=== PATIENT | female | born 1980 | race Caucasian/White ===

== ENCOUNTER 2019-04-07 23:23 | Emergency (ER) | payer BC ==
--- NOTE | 2019-04-08 00:03 | EDM.PDOC ---
ED HPI GENERAL MEDICAL PROBLEM - General Chief Complaint: Gastrointestinal Problem Stated Complaint: AMBULANCE-STOMACH PROBLEMS Time Seen by Provider: 04/07/19 23:58 Source of Information: Reports: Patient History Limitations: Reports: No Limitations - History of Present Illness INITIAL COMMENTS - FREE TEXT/NARRATIVE: onset epiG pain with vomiting 8pm, had biscuit prior but wasn't one with gravy. still has GB but no appy and had GI bypass @ [place] few weeks ago. has regular BM. denies . 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 ED EXAM, GI/ABD - Physical Exam Exam: See Below Exam Limited By: No Limitations General Appearance: Alert, WD/WN, Mild Distress, Other (upset). No: Active Emesis Ears: Hearing Grossly Normal Throat/Mouth: Normal Voice, No Airway Compromise Head: Atraumatic Neck: Non-Tender, Full Range of Motion Respiratory/Chest: No Respiratory Distress Cardiovascular: Regular Rate, Rhythm GI/Abdominal Exam: Soft, Tender, Other (epiG region). No: Distended, Guarding, Rigid, Rebound Neurological: Alert, Oriented, Normal Cognition, Normal Gait, No Motor/Sensory Deficits Psychiatric: Flat Affect Skin Exam: Warm, Dry, Normal Color Lymphatic: No Adenopathy Course - Vital Signs Last Recorded V/S: Last Vital Signs Temp 36.0 C 04/07/19 23:50 Pulse 54 L 04/07/19 23:50 Resp 16 04/07/19 23:50 BP 119/75 04/07/19 23:50 Pulse Ox 100 04/07/19 23:50 - Orders/Labs/Meds Labs: Laboratory Tests 04/08/19 04/08/19 Range/Units 00:15 00:15 WBC 12.7 H (5.0-10.0) 10^3/uL RBC 4.75 (4.2-5.4) 10^6/uL Hgb 13.1 (12.0-16.0) g/dL Hct 38.7 (37.0-47.0) % MCV 81.5 (80-100) fL MCH 27.6 (27.0-34.0) pg MCHC 33.9 (33.0-35.0) g/dL Plt Count 290 (150-450) 10^3/uL Neut % (Auto) 81.7 H (42.2-75.2) % Lymph % (Auto) 12.6 L (20.5-50.1) % [place] % (Auto) 5.4 (2-8) % Eos % (Auto) 0.1 L (1.0-3.0) % Baso % (Auto) 0.2 (0.0-1.0) % Sodium 138 (135-145) mmol/L Potassium 3.5 L (3.6-5.0) mmol/L Chloride 108 (101-111) mmol/L Carbon Dioxide 17.0 L (21.0-31.0) mmol/L Anion Gap 16.5 BUN 13 (7-18) mg/dL Creatinine 0.5 L (0.6-1.3) mg/dL Est Cr Clr Drug Dosing 153.89 mL/min Estimated GFR (MDRD) > 60 BUN/Creatinine Ratio 26.00 Glucose 112 H (74-105) mg/dL Calcium 8.9 (8.4-10.2) mg/dl Total Bilirubin 1.7 H (0.2-1.0) mg/dL AST 21 (10-42) IU/L ALT 39 (10-60) IU/L Alkaline Phosphatase 54 (42-121) IU/L Total Protein 6.5 L (6.7-8.2) g/dl Albumin 3.8 (3.2-5.5) g/dl Globulin 2.7 Albumin/Globulin Ratio 1.41 Amylase 37 (28-100) U/L Lipase 29 (22-51) U/L Meds: Medications Discontinued Medications Generic Name Dose Route Start Last Admin Trade Name Marifer PRN Reason Stop Dose Admin Iopamidol 100 ml 04/08/19 00:23 04/08/19 00:44 Isovue-300 (61%) IVPUSH 04/08/19 00:24 100 ml ONETIME ONE Administration Ketorolac Tromethamine 30 mg 04/08/19 01:52 04/08/19 02:02 Toradol IVPUSH 04/08/19 01:53 30 mg ONETIME ONE Administration Metoclopramide HCl 10 mg 04/08/19 00:20 04/08/19 00:29 Reglan IVPUSH 04/08/19 00:21 10 mg ONETIME ONE Administration Promethazine HCl 25 mg 04/08/19 02:29 Phenergan IM 04/08/19 02:30 ONETIME ONE - Re-Assessments/Exams Free Text/Narrative Re-Assessment/Exam: 04/08/19 02:34 re-exam; s/p IV toradol = pain much better but still feels nauseous. Departure - Departure Time of Disposition: 02:35 Disposition: Home, Self-Care 01 Condition: Good Clinical Impression: Cholelithiasis without obstruction - Discharge Information Instructions: Cholelithiasis, [id number] Forms: ED Department Discharge Additional Instructions: 1) avoid fatty oily fried spicy foods 2) have bland diet, oatmeal, broth, jello 3) see family doctor when arrive home. 4) recheck if there is any change or concern
[2019-04-08] MEDS: Metoclopramide 10 MG/2 ML SDV IVPUSH ONE (00:29)
[2019-04-08 00:41] LABS: ANION GAP 16.5; CHLORIDE,CL 108 mmol/L (101-111); SODIUM,NA 138 mmol/L (135-145)
[2019-04-08] MEDS: Iopamidol 612 MG/ML 100 ML Bottle IVPUSH ONE (00:44)
[2019-04-08] MEDS: Ketorolac 30 MG/ML SDV IVPUSH ONE (02:02)
[2019-04-08] MEDS: Promethazine 25 MG/ML SDV IM ONE (02:37)
== END 2019-04-08 02:55 | disposition home or self-care (01) ==
LOC: DL.ED 23:23
DX: K80.20 Calculus of gallbladder without cholecystitis without obstruction (principal); K21.9 Gastro-esophageal reflux disease without esophagitis; Z90.49 Acquired absence of other specified parts of digestive tract; Z98.84 Bariatric surgery status; Z88.0 Allergy status to penicillin; Z79.899 Other long term (current) drug therapy
CPT/HCPCS: 36415; 74177; 80053; 82150; 83690; 85025; 96372; 96374; 96375; 99284; J1885; J2550; J2765; Q9967

== ENCOUNTER 2021-08-21 05:59 | Emergency (ER) | payer BC ==
[2021-08-21] MEDS ORDERED: Ondansetron 4 MG/2 ML SDV IVPUSH ONE (06:01)
[2021-08-21] MEDS ORDERED: Sodium Chloride 0.9% 1,000 ML IV ONE ×2 (06:01→08:04)
[2021-08-21] MEDS ORDERED: HYDROmorphone 1 MG/ML Syringe IVPUSH ONE ×4 (06:01→08:48)
[2021-08-21] MEDS ORDERED: Iopamidol 612 MG/ML 100 ML Bottle IVPUSH ONE (06:14)
[2021-08-21 06:41] LABS: ANION GAP 22.5 mEq/L (7-13)
[2021-08-21] MEDS ORDERED: HYDROmorphone 1 MG/ML Syringe ONE (06:48)
[2021-08-21] MEDS ORDERED: metroNIDAZOLE/Normal Saline 500 MG in Premix Bag 100 BAG IV ONE (07:49)
[2021-08-21] MEDS ORDERED: Ciprofloxacin in D5W 400 MG in Premix Bag 1 BAG IV ONE ×2 (07:51)
[2021-08-21] MEDS ORDERED: fentaNYL 100 MCG/2 ML SDV IVPUSH ONE (08:50)
== END 2021-08-21 08:57 ==
LOC: DL.ED 05:59
DX: K81.0 Acute cholecystitis (principal); Z88.0 Allergy status to penicillin; Z79.899 Other long term (current) drug therapy
CPT/HCPCS: 36415; 74177; 80053; 81001; 82150; 83605; 83690; 85025; 87040; 96365; 96368; 96375; 96376; 99285-25; J0744; J1170; J2405; J3010; J3490; J7030; Q9967